=== PATIENT | female | born 1975 | race Caucasian/White ===

== ENCOUNTER 2023-08-21 12:55 | Emergency (ER) | payer OTHER ==
[2023-08-21 13:34] VITALS: BP 114/79; PULSE 96; RESP 16; TEMP 97.8; BMI 24.0
== END 2023-08-21 14:50 | disposition home or self-care (01) ==
LOC: FER 12:55
DX: S60.932A Unspecified superficial injury of left thumb, initial encounter (principal); M79.645 Pain in left finger(s); R22.32 Localized swelling, mass and lump, left upper limb; W20.8XXA Other cause of strike by thrown, projected or falling object, initial encounter
CPT/HCPCS: 73130-TC-LT-FY; 99283-25